=== PATIENT | female | born 1995 | race Caucasian/White ===

== ENCOUNTER 2021-01-03 09:03 | Outpatient (CLI) | payer BC | END 2021-01-03 09:04 | disposition home or self-care (01) | LOC: RAD-FITCH 09:03 | PROVIDERS: ATTEND Family Medicine Sports Medicine | DX: M79.672 Pain in left foot (principal); S92.332A Displaced fracture of third metatarsal bone, left foot, initial encounter for closed fracture; S92.342A Displaced fracture of fourth metatarsal bone, left foot, initial encounter for closed fracture ==